=== PATIENT | male | born 1970 | race Caucasian/White ===

== ENCOUNTER 2022-02-01 14:18 | Emergency (ER) | payer SELFPAY ==
[2022-02-01] VITALS (11 sets, daily range): BP systolic 131–139; BP diastolic 76–89; PULSE 68–81; RESP 16–22; TEMP 36.8; O2SAT 95–98
--- NOTE | ~2022-02-01 | CT_ITS ---
EXAMINATION: CT brain wo con DATE: 02/01/2022 14:44 INDICATION: Altered mental status. Headache. TECHNIQUE: Computed tomography (CT) of the head was performed without intravenous contrast. The mA wa s adjusted according to patient size. Iterative reconstruction technique was employed. The dose-lengt h product was 605.33 mGy-cm. COMPARISON: None FINDINGS: There is no intracranial hemorrhage, acute infarction, or abnormal intracranial mass lesion . The ventricles are normal in size. There is mucosal thickening in the paranasal sinuses. The orbits are normal. The mastoid air cells are normal. IMPRESSION: 1. Normal brain. Reviewed, dictated and finalized at location A. IMPRESSION: 1. Normal brain.
--- NOTE | ~2022-02-01 | XR_ITS ---
EXAMINATION: XR chest 1V DATE: 02/01/2022 14:48 INDICATION: Stupor. TECHNIQUE: A single frontal view of the chest was obtained. COMPARISON: None. FINDINGS: There is no pneumonia, pleural effusion, or pneumothorax. The heart size is normal. IMPRESSION: 1. No acute cardiopulmonary disease. Reviewed, dictated and finalized at location A.
--- NOTE | 2022-02-01 14:20 | ECG_ITS ---
Measurements Intervals [place] Rate: 75 P: 77 [place]: 144 QRS: 83 QRSD: 98 T: 63 QT: 372 QTc: 416 Interpretive Statements SINUS RHYTHM POSSIBLE LEFT ATRIAL ENLARGEMENT [-0.1mV P WAVE IN V1/V2] POSSIBLE RIGHT VENTRICULAR CONDUCTION DELAY [RSR (QR) IN V1/V2] NO PREVIOUS ECG AVAILABLE FOR COMPARISON Electronically Signed On 02-01-2022 17:11:20 CDT by Jerry Savage M.D.
--- NOTE | 2022-02-01 14:38 | ED.AMS ---
HPI - Altered Mental Status General Chief Complaint: Altered Mental Status Stated Complaint: asthma attack Time Seen by Provider: 02/01/22 14:31 History of Present Illness HPI narrative: Pt was riding in bus on way to work and felt SOB, thought was having asthma attack and used strangers inhaler. Pt then became very confused and when he got off bus PD was called because he was not acting right. PD took him home and said he was not acting right. Pt said he developed VILLANUEVA in ambulance. Pt admits to smoking cannabis ealier today but does this regularly without having any issues. Related Data Allergies Allergy/AdvReac Type Severity Reaction Status Date / Time No Known Allergies Allergy Verified 02/01/22 14:24 Review of Systems Review of Systems: All systems reviewed & are unremarkable except as noted in HPI and below Exam Const: General: healthy appearing and no acute distress Nutritional Appearance: well nourished Orientation/consciousness: patient oriented x3 Limitations: no limitations HENMT: Head: normal to inspection Mouth: Yes Normal oral and palatal mucosa present Eyes: Conjunctivae: conjunctivae normal Pupils: Equal, round and reactive pupils present EOM: EOMs intact bilaterally Neck: Neck: normal visual inspection, no lymphadenopathy and no meningeal signs Resp: Effort & Inspection: normal respiratory effort Auscultation: clear to auscultation bilaterally Cardio: Rate: regular rate Rhythm: regular rhythm GI: GI Palp: Yes Soft to palpation Auscultation: normal bowel sounds Skin: General skin exam: normal color Rashes: no rashes Neuro: General: patient oriented x3 Cranial nerves: Yes Nystagmus not present Speech: normal speech Extrem: General: normal to inspection Psych: Mental Status: mental status grossly normal Affect: normal affect Attitude: cooperative Course Course Emergency Course: pt feels completely back to normal and would like to go home Vital Signs Vital signs: Vital Signs Temperature 98.2 F 02/01/22 14:11 Pulse Rate 75 02/01/22 14:11 Respiratory Rate 22 H 02/01/22 14:11 Blood Pressure 131/89 02/01/22 14:11 Pulse Oximetry 96 02/01/22 14:11 Temperature 98.2 F 02/01/22 14:11 Pulse Rate 68 02/01/22 17:31 Respiratory Rate 16 02/01/22 17:31 Blood Pressure 132/76 02/01/22 17:31 Pulse Oximetry 98 02/01/22 17:31 MDM - Altered Mental Status Lab Data Result diagrams: 02/01/22 14:30 02/01/22 14:30 Labs: Lab Results 02/01/22 02/01/22 02/01/22 Range/Units 14:30 14:30 14:30 WBC 7.4 (4.5-10.0) K/mm3 RBC 3.70 L (4.6-6.20) M/mm3 Hgb 12.9 L (14.0-18.0) g/dL Hct 37.4 L (42.0-52.0) % MCV 101.1 H (80-100) fl MCH 34.9 H (26-34) pg MCHC 34.5 (32-36) g/dl RDW 14.6 H (11.5-14.5) % Plt Count 304 (150-375) k/mm3 MPV 9.7 (7.4-10.4) fl Immature Gran % (Auto) 0.3 (0-0.5) % Neut % (Auto) 59.1 (45.5-73.1) % Lymph % (Auto) 30.9 (18.3-44.2) % [place] % (Auto) 7.4 (2.6-8.5) % Eos % (Auto) 1.1 (0-4.4) % Baso % (Auto) 1.2 (0.2-1.2) % Lymph # (Auto) 2.29 (0.9-3.2) K/mm3 [place] # (Auto) 0.6 (0.1-0.6) K/mm3 Eos # (Auto) 0.1 (0-0.3) K/mm3 Baso # (Auto) 0.1 (0.0-0.1) K/mm3 Abs Immat Gran (auto) 0.02 (0.00-0.031) K/mm3 Absolute Neuts (auto) 4.4 (1.3-6.7) K/mm3 Absolute Nucleated RBC 0.0 (0.0-0.012) K/mm3 Nucleated RBC % 0.0 (0.0-0.2) % PT 11.7 (11.1-14.7) Seconds INR 0.9 APTT 32.2 (22.3-36.8) SECONDS Sodium 134 L (137-145) mmol/L Potassium 3.7 (3.4-5.0) mmol/L Chloride 103 (98-107) mmol/L Carbon Dioxide 24 (22-30) mmol/L Anion Gap 7 L (8-16) mmol/L BUN 10 (9-20) mg/dL Creatinine 0.80 (0.7-1.3) mg/dL Estim Creat Clear Calc 95 ml/min Estimated GFR > 60 (59 - ) Glucose 88 (65-110) mg/dL Calcium 9.2 (8.4-10.2) mg/dL Total Bilirubin 0.5 (0.2-1.3
[2022-02-01] MEDS: SODIUM CHLORIDE 0.9% IV 1,000 ML 999 ML IV CONT (14:46)
[2022-02-01 14:47] LABS: Alanine Aminotransferase 44 U/L (6-50); Albumin Level 4.5 g/dL (3.5-5.1); Alkaline Phosphatase 92 U/L (38-126); Anion Gap 7 mmol/L (8-16); Aspartate Amino Transferase 88 U/L (17-59); Bilirubin,Total 0.5 mg/dL (0.2-1.3); Blood Urea Nitrogen 10 mg/dL (9-20); Calcium 9.2 mg/dL (8.4-10.2); Carbon Dioxide 24 mmol/L (22-30); Chloride 103 mmol/L (98-107); Estimated CRCL calculation 95 ml/min; Estimated Glomerular Filt Rate > 60; Glucose 88 mg/dL (65-110); INR 0.9; Potassium 3.7 mmol/L (3.4-5.0); Prothrombin Time 11.7 Seconds (11.1-14.7); Sodium 134 mmol/L (137-145)
[2022-02-01 14:48] LABS: Partial Thromboplastin Time 32.2 SECONDS (22.3-36.8)
[2022-02-01 15:00] LABS: Basophils Absolute Auto 0.1 K/mm3 (0.0-0.1); Basophils Percent Auto 1.2 % (0.2-1.2); Eosinophils Absolute Auto 0.1 K/mm3 (0-0.3); Eosinophils Percent Auto 1.1 % (0-4.4); Hematocrit 37.4 % (42.0-52.0); Hemoglobin 12.9 g/dL (14.0-18.0); Immature Granulocyte Absolute 0.02 K/mm3 (0.00-0.031); Immature Granulocyte Percent A 0.3 % (0-0.5); Lymphocytes Absolute Auto 2.29 K/mm3 (0.9-3.2); Lymphocytes Percent Auto 30.9 % (18.3-44.2); Mean Corpuscular HGB Conc 34.5 g/dl (32-36); Mean Corpuscular Hemoglobin 34.9 pg (26-34); Mean Corpuscular Volume 101.1 fl (80-100); Mean Platelet Volume 9.7 fl (7.4-10.4); Monocytes Absolute Auto 0.6 K/mm3 (0.1-0.6); Monocytes Percent Auto 7.4 % (2.6-8.5); Neutrophils Absolute Auto 4.4 K/mm3 (1.3-6.7); Neutrophils Percent Auto 59.1 % (45.5-73.1); Platelet Count Result 304 k/mm3 (150-375); Red Cell Distribution Width 14.6 % (11.5-14.5); White Blood Count 7.4 K/mm3 (4.5-10.0)
[2022-02-01] MEDS: MORPHINE SULFATE (*CRX) 4 MG/ML INJ IV PUSH (16:05)
[2022-02-01] MEDS: ONDANSETRON INJ 4 MG/2 ML VIAL IV PUSH (16:29)
[2022-02-01 16:39] LABS: Appearance Urine Clear (Clear); Bilirubin Urine Negative (Negative); Blood Urine Negative (Negative); Color Urine Yellow (Yellow); Glucose Urine UA Negative (Negative); Ketones Urine Negative (Negative); Leukocyte Esterase Ur Negative LEU/UL (Negative); Nitrate Urine Negative (Negative); Protein Urine Negative (Negative); Specific Grav Ur 1.015 (1.001-1.035); pH Urine 7.5 (5.0-9.0)
[2022-02-01 16:40] LABS: Amphetamine Screen Urine Negative (Negative); Barbiturate Screen Urine Negative (Negative); Benzodiazepines Screen Urine Negative (Negative); Cannabinoid Screen Urine Positive (Negative); Cocaine Screen Urine Negative (Negative); Methadone Screen Urine Negative (Negative); Opiate Screen Urine Negative (Negative); Phencyclidine Screen Urine Negative (Negative); WBC Urine 0-3 /hpf
[2022-02-01 16:48] LABS: Add Urine Microscopic? NO
--- NOTE | 2022-02-04 12:21 | PC.NURSE ---
LATE ENTRY This note is being entered to document information to the patient's record. The following information was omitted on [02/01/22], by [pina escobar]. NS start at 1523 ended [id number]
== END 2022-02-01 17:34 | disposition home or self-care (01) ==
PROVIDERS: Emergency Medicine; Emergency Provider Emergency Medicine
DX: R41.82 Altered mental status, unspecified (principal)
CPT/HCPCS: 36415; 70450; 71045; 80053; 80307; 81003; 84443; 85025; 85610; 85730; 93005; 96361; 96374; 96375; 99284; J2270; J2405; J7030

== ENCOUNTER 2025-01-07 13:22 | Emergency (ER) | payer SELFPAY ==
--- NOTE | ~2025-01-07 | XR_ITS ---
XR knee LT min 4V 01/07/2025 15:06 Indication: Left knee pain after injury Procedure: 4 views left knee Comparison: No acute fracture, subluxation or dislocation. No significant joint effusion. No foreign bodies. Findings: No acute bone or joint abnormality. Impression: 1: Reviewed, dictated and finalized at location A. Impression: 1:
--- NOTE | ~2025-01-07 | XR_ITS ---
XR ankle LT min 3V 01/07/2025 15:07 Indication: Left ankle pain after injury Procedure: 4 views left ankle Comparison: No prior studies for comparison. Findings: No acute fracture, subluxation or dislocation. Ankle mortise intact. Talar dome is normal. No soft tissue abnormality. No foreign bodies. Osteopenia. Impression: 1: No acute fracture. Reviewed, dictated and finalized at location A. Impression: 1: No acute fracture.
[2025-01-07 13:29] VITALS: BP 132/92; PULSE 100; RESP 16; TEMP 36.4; O2SAT 100
--- OUTSIDE RECORDS SUMMARY | 2025-01-07 13:30 | XMS_ITS | Clinical Summary ---
Author Organization [facility] [employer] Address [address] [place] [address] Care Team Providers Care Dip Lube Operator Name Role Phone None, Physician Primary Care Provider Unavailabl e Source Comments [facility] [employer],non-owned Affiliates and Associated Physician Practices is amultiple site organization consisting of ambulatory clinics and hospital sitesin [place], [place], [place] and [place]. This disclosure is being madepursuant to the Care Everywhere program and may not contain all information available regarding this patient. Last updated 18.[facility] [employer] Allergies Active Allergy Reactions Criticality Noted Date Comments [place] Unknown 06/24/2024 Medications * Be aware that medications may not be up to date on this document. Alwaysverify current medications with the patient. FLUoxetine (PROzac) 60 MG tabletIndicatio ns:Depression Take 60 mg by mouth once daily Reasons: Depression Active lisinopril (Prinivil; Zestril) 20 MG tabletIndicatio ns:Hypertension Take 20 mg by mouth once daily Reasons: High Blood Pressure Disorder Active aspirin (Aspirin) 81 MG chew tablet Take 1 (one) tablet by mouth once daily 30 tablet 2 2 Active atorvastatin (Lipitor) 80 MG tablet Take 1 (one) tablet by mouth at bedtime 30 tablet 2 2 Active Active Problems Problem Noted Date Diagnosed Date Head trauma, initial encounter 06/24/2024 Scalp laceration, initial encounter 06/24/2024 Open fracture of right occip ital condyle with routine healing 06/24/2024 Right sided weakness 02/19/2022 Chest pain 02/19/2022 Acute pain of left shoulder 02/19/2022 Word finding difficulty 02/19/2022 Alcohol use 02/19/2022 HTN (hypertension) 02/19/2022 Anxiety 02/19/2022 Hx of transient ischemic attack (TIA) 02/19/2022 Right sided numbness 02/19/2022 Facial droop 02/19/2022 Immunizations Immunization Administration Dates Next Due TDAP (7yrs+) 06/24/2024 TDAP, HISTORIC VACCINE 12/20/2017 Social History Tobacco Use Types Packs/Day Years Used Date Smoking Tobacco: Never Smokeless Tobacco: Never AUDIT-C Answer Date Recorded Q1: How often do you have a drink containing alc ohol? Monthly or less 02/20/2022 Q2: How many drinks containi ng alcohol do you have on a typical day when you are drinking? 1 or 2 02/20/2022 Q3: How often do you have si x or more drinks on one occasion? Less than monthly 02/20/2022 PHQ-2 Answer Date Recorded PHQ2 TOTAL SCORE 0 02/21/2022 Hunger Vital Sign Answer Date Recorded Within the past 12 months, y ou worried that your food would run out before you got the money to buy more. Never true 02/21/20 22 Within the past 12 months, t he food you bought just didn't last and you didn't have money to get more. Never true 02/20/2022 Sex and Gender Information Value Date Recorded Sex Assigned at Not on file Legal Sex Male 1:45 PM CDT Gender Identity Not on file Sexual Orientation Not on file Last Filed Vital Signs Vital Sign Reading Time Taken Comments Blood Pressure 139/95 06/25/2024 2:41 AM INTERNAL SALES Pulse 96 06/24/2024 8:55 PM INTERNAL SALES Temperature 37 C (98.6 F) 06/24/2024 8:55 PM INTERNAL SALES Respiratory Rate 22 06/24/2024 8:55 PM INTERNAL SALES Oxygen Saturation 98% 06/24/2024 8:55 PM INTERNAL SALES Inhaled Oxygen Concentration - - Weight 65.3 kg (144 lb) 02/20/2022 8:00 AM CDT Height 180.3 cm (5' 11) 02/20/2022 8:00 AM CDT Body Mass Index 20.08 02/20/2022 8:00 AM CDT Plan of Treatment Health Maintenance Due Date Last Done Comments COLOGUARD (AGES 45-75) - COL ON CA SCREENING 1970 COLON MONITORING 1970 COLONOSCOPY - COLON CA SCREENING 1970 CT COLONOGRAPHY - COLON CA SCREENING 1970 Colorectal Cancer Screening 1970 FIT - COLON CA SCREENING 1970 FLEX SIG - COLON CA SCREENING 1970 HIV SCREENING 1985 HEPATITIS C SCREENING 07/16/1988 HEPATITIS B VACCINE (1 of 3 - 19+ 3-dose series) 1989 PNEUMOCOCCAL VACCINE 50+ (1 of 1 - PCV) 2020 ZOSTER VACCINE (1 of 2) 2020 COVID-19 VACCINE (1 - 2023-2 5 season) 2024 DEPRESSION SCREENING 06/06/2024 02/19/2022 INFLUENZA VACCINE (#1) 2025 DTAP/TDAP/TD VACCINES (3 - T d or Tdap) 06/24/2034 06/24/2024, 12/20/2017 HIB VACCINE Aged Out No longer eligi ble based on patient's age to complete this topic HPV VACCINE Aged Out No longer eligi ble based on patient's age to complete this topic MENINGOCOCCAL (Group B) VACCINE SHARED DECISION-MAKING Aged Out No longer eligible based on patient's age to complete this topic MENINGOCOCCAL GROUPS A/C/Y/W VACCINE Aged Out No longer eligible b ased on patient's age to complete this topic Advance Directives * Full Code (Latest Code Status on File) Date Activated Date Inactivated Comments 02/19/2022 2:47 PM 02/21/2022 7:26 PM Care Teams Dip Lube Operator Relationship Specialty Start Date End Date None, Physician PCP - General 06/24/24
--- NOTE | 2025-01-07 16:24 | ED.LOWEXIN ---
HPI - Extremity Injury (Lower) General Chief Complaint: Extremity Injury, Lower Stated Complaint: L. knee and L. ankle pain Time Seen by Provider: 01/07/25 16:22 History of Present Illness HPI Narrative: 54-year-old male presents to the ER complaining of left knee left ankle injury of approximately 5-6 days ago. Patient said he was outside when he rolled his ankle in a hole and fell to the ground. Patient is complaining left knee and left ankle pain. Patient also reports hearing a pop in his left knee when he fell. Patient denies hitting his head, loss of conscious, neck pain, back pain, or any other injuries. Patient is able to bear weight on his left foot however says it is painful to walk. Patient has been taking Tylenol and ibuprofen around the clock to help with pain with some relief. Patient denies any numbness or tingling. Related Data Allergies Allergy/AdvReac Type Severity Reaction Status Date / Time lithium Allergy Unknown Verified 01/07/25 13:34 Review of Systems Review of Systems: CONSTITUTIONAL: Denies fever, chills, or sweats. EYES: Denies visual changes, redness, or discharge. ENT: Denies rhinorrhea, congestion, sore throat, or otalgia. CARDIOVASCULAR: Denies chest pain, palpitations, dizziness, lightheadedness, or edema. RESPIRATORY: Denies cough or dyspnea. GASTROINTESTINAL: Denies abdominal pain, nausea, vomiting, or diarrhea. GENITOURINARY: Denies dysuria or hematuria. SKIN: Denies rash or itching. MUSCULOSKELETAL: Denies back pain, joint pain, or myalgia. Positive for left knee and ankle pain. NEUROLOGIC: Denies headache, numbness, loss of conscious, or weakness. PSYCHIATRIC: Denies anxiety or depression. All other systems reviewed are negative, except as documented in HPI. Exam Narrative: GENERAL: This is a well-nourished, well-developed adult, in no apparent distress. They are non ill-appearing, nontoxic appearing. HEAD: normocephalic, atraumatic. EYES: Sclera clear/white. Vision is grossly intact. EARS: External ears normal, Hearing grossly intact. NOSE: External nose normal THROAT: Mucous membranes moist NECK: Neck supple, CARDIOVASCULAR: Regular rate and rhythm RESPIRATORY: Respiratory rate normal, respiratory effort nonlabored, no respiratory distress SKIN: warm, Dry, intact with no suspicious lesions or rash, good texture and turgor. NEURO: awake, alert, and oriented to person, place and time. There were no obvious focal neurologic abnormalities. EXTREMITIES: Left knee: No obvious deformity, swelling, injury, bruising, redness. Tenderness to palpate throughout the left knee. No valgus or varus laxity. Limited range of motion due to pain. Neurovascular status intact distal injury. Capillary refill less than 2 seconds. Left ankle: No obvious deformity, swelling, bruising, redness, or injury. Tenderness to palpation throughout the ankle. Normal dorsiflexion and plantar flexion of left ankle. There is pain to full range of motion of ankle. Negative Fountain's test. Left pedal pulse 2 +and palpable. Capillary refill less than 2 seconds. Patient is able to wiggle his toes. Course Vital Signs Vital signs: Vital Signs Temperature 97.6 F 01/07/25 13:29 Pulse Rate 100 01/07/25 13:29 Respiratory Rate 16 01/07/25 13:29 Blood Pressure 132/92 H 01/07/25 13:29 Pulse Oximetry 100 01/07/25 13:29 Oxygen Delivery Room Air 01/07/25 13:29 Temperature 97.6 F 01/07/25 13:29 Pulse Rate 89 01/07/25 16:54 Respiratory Rate 18 01/07/25 16:54 Blood Pressure 140/78 01/07/25 16:54 Pulse Oximetry 99 01/07/25 16:54 Oxygen Delivery Room Air 01/07/25 13:29 MDM - Extremity Injury (Lower) MDM Narrative Medical decision making narrative: X-ray left knee and left ankle are negative for any fractures or acute findings. Likely patient has ankle sprain knee sprain. Patient given crutches to help ambulate. She given a dose of [place] for pain will send the home he short prescription of [place]. Advised patient to follow-up with orthopedist. Discussed physical exam findings. Advised supportive measures and signs/symptoms to go to the ER. Pt is appropriate for outpt treatment and f/u. Differential Diagnosis Differential diagnosis: Likely ankle sprain and strain, acute internal derangement of knee, ankle fracture and other (Ankle sprain) Imaging Data Radiologist's impression: ITS Impressions Ankle X-Ray 01/07/25 15:26 Impression: 1: No acute fracture. Knee X-Ray 01/07/25 15:27 Impression: 1: Indication: Left knee pain after injury Procedure: 4 views left knee Comparison: No acute fracture, subluxation or dislocation. No significant joint effusion. No foreign bodies. Findings: No acute bone or joint abnormality. Discharge Plan Discharge Clinical Impression: Ankle sprain and strain Knee sprain Qualifiers: Encounter type: initial encounter Involved ligament of knee: unspecified ligament Laterality: left Qualified Code(s): S83.92XA - Sprain of unspecified site of left knee, initial encounter Patient Disposition: Home Condition: Stable Instructions: Ankle Sprain (ED), Knee Sprain (DC) Additional Instructions: The x-ray of her left knee and left ankle are negative for any fractures or acute findings. Rest and elevate the leg; bear weight as tolerated Use crutches as needed to ambulate Apply ice 15-20 minute intervals several times a day Keep your knee and ankle wrapped with NAOMIE or use a soft ankle splint or knee brace. Motrin 600mg -800mg every 8 hours. May take [place] as directed for severe pains. Do not drive or operate machinery while taking [place] as it may make you drowsy. Follow up with your primary care provider or orthopedist in 1-2 weeks Patient Language: Kazakh Prescriptions: New hydrocodone-acetaminophen 5-325 mg tablet 1 tablet PO Q6H PRN (Reason: pain) Qty: 10 0RF Follow-up/Referrals: Edgar Degroot MD [Physician] - PHYSICIAN,ROOM SERVICE FOOD SERVICE ATTENDANT [Non-Staff] - Time of Disposition: 16:31
--- OUTSIDE RECORDS SUMMARY | 2025-01-07 16:39 | XMS_ITS | Clinical Summary ---
Author Organization [facility] [employer] Address [address] [place] [address] Care Team Providers Care Novelty Twister Operator Name Role Phone None, Physician Primary Care Provider Unavailabl e Source Comments [facility] [employer],non-owned Affiliates and Associated Physician Practices is amultiple site organization consisting of ambulatory clinics and hospital sitesin [place], [place], [place] and [place]. This disclosure is being madepursuant to the Care Everywhere program and may not contain all information available regarding this patient. Last updated 18.[facility] [employer] Allergies Active Allergy Reactions Criticality Noted Date Comments [place] Unknown 06/24/2024 Medications * Be aware that [...] Comments Blood Pressure 139/95 06/25/2024 2:41 AM FOREST FIRE PREVENTION MANAGER Pulse 96 06/24/2024 8:55 PM FOREST FIRE PREVENTION MANAGER Temperature 37 C (98.6 F) 06/24/2024 8:55 PM FOREST FIRE PREVENTION MANAGER Respiratory Rate 22 06/24/2024 8:55 PM FOREST FIRE PREVENTION MANAGER Oxygen Saturation 98% 06/24/2024 8:55 PM FOREST FIRE PREVENTION MANAGER Inhaled Oxygen Concentration - - Weight 65.3 [...] 2:47 PM 02/21/2022 7:26 PM Care Teams Novelty Twister Operator Relationship Specialty Start Date End Date None, Physician PCP - General 06/24/24
[2025-01-07] MEDS: HYDROcodone/acetaminophen (*CRX) 5-325 MG TABLET 1 TAB PO (16:40)
--- NOTE | 2025-01-07 16:44 | PC.NURSE ---
transport called for transportation upon discharge
[2025-01-07 16:54] VITALS: BP 140/78; PULSE 89; RESP 18; O2SAT 99
== END 2025-01-07 16:55 | disposition home or self-care (01) ==
DX: S83.92XA Sprain of unspecified site of left knee, initial encounter (principal); S93.409A Sprain of unspecified ligament of unspecified ankle, initial encounter; W17.2XXA Fall into hole, initial encounter
CPT/HCPCS: 73564; 73610; 99284; A9270

== ENCOUNTER 2025-04-12 15:09 | Outpatient (CLI) | payer OTHER, SELFPAY ==
--- NOTE | ~2025-04-12 | CT_ITS ---
EXAMINATION: CT brain wo/w con, 04/12/2025 15:30 DB2 DEVELOPER HISTORY: head trauma/ migraine COMPARISON: No comparisons available. Technique: Axial images obtained of the brain without and with intravenous contrast. One or more of the following dose reduction techniques were used: automated exposure control, adjustment of the mA and/or kV according to patient size, use of iterative reconstruction technique. Findings: No acute infarct or parenchymal hemorrhage. No abnormal enhancement No abnormal mass or mass effect. No midline shift. No extra-axial fluid collections. No hydrocephalus. Mastoid air cells unremarkable. Sinuses and orbits unremarkable. No acute fracture. No significant facial or scalp soft tissue swelling evident. No radiopaque foreign body is seen. Impression: 1.No acute intracranial abnormality. Symptoms persist contrast-enhanced MRI is suggested Reviewed, dictated and finalized at location P. 2 DEVELOPER Impression: 1.No acute intracranial abnormality. Symptoms persist contrast-enhanced MRI is suggested
[2025-04-12 15:35] LABS: Estimated Glomerular Filt Rate > 60
== END 2025-04-12 15:10 | disposition home or self-care (01) ==
PROVIDERS: PCP Registered Nurse; Visit Provider Registered Nurse
DX: S09.90XD Unspecified injury of head, subsequent encounter (principal); G43.909 Migraine, unspecified, not intractable, without status migrainosus; M54.2 Cervicalgia; X58.XXXD Exposure to other specified factors, subsequent encounter
CPT/HCPCS: 70470; Q9967